=== PATIENT | female | born 1960 | race African-American/Black ===

== ENCOUNTER 2021-03-19 12:33 | Emergency (ER) | payer OTHER ==
[~2021-03-19] VITALS: Ht 154.9 cm; Wt 74.8 kg
[2021-03-19] MEDS ORDERED: IVERMECTIN3 MG PO (16:03)
== END 2021-03-19 16:10 | disposition home or self-care (01) ==
LOC: ER 12:33
DX: B34.9 Viral infection, unspecified (principal); Z03.818 Encounter for observation for suspected exposure to other biological agents ruled out; R09.81 Nasal congestion

== ENCOUNTER 2021-04-03 09:45 | Emergency (ER) | payer OTHER ==
[~2021-04-03] VITALS: Ht 154.9 cm; Wt 71.7 kg
[~2021-04-03 09:45] MED LIST: IVERMECTIN3 MG PO
[2021-04-03] MEDS ORDERED: SYMBICORT 16010.2 GM IH (16:20)
[2021-04-03] MEDS ORDERED: DICLOFENAC POTA50 MG PO (16:20)
[2021-04-03] MEDS ORDERED: MEDROLPACK PO (16:20)
[2021-04-03] MEDS ORDERED: TESSALON PERLE100 M1 PO (16:20)
== END 2021-04-03 16:39 ==
LOC: ER 09:45
DX: U07.1 COVID-19 (principal); J12.82 Pneumonia due to coronavirus disease 2019; R53.1 Weakness

== ENCOUNTER 2021-08-07 21:26 | Emergency (ER) | payer OTHER ==
[~2021-08-07] VITALS: Ht 157.5 cm; Wt 70.3 kg
[~2021-08-07 21:26] MED LIST changes: +DICLOFENAC POTA50 MG PO; +MEDROLPACK PO; +SYMBICORT 16010.2 GM IH; +TESSALON PERLE100 M1 PO
[2021-08-07] MEDS ORDERED: DOLOGEN CAPLET1 EACH PO (21:53)
[2021-08-07] MEDS ORDERED: ZYRTEC10 MG PO (21:53)
[2021-08-07] MEDS ORDERED: ZITHROMAX500 MG PO (21:53)
[2021-08-07] MEDS ORDERED: TUSNEL LIQUID178 ML PO (21:53)
== END 2021-08-07 21:59 | disposition home or self-care (01) ==
LOC: ER 21:26
DX: B34.9 Viral infection, unspecified (principal)

== ENCOUNTER 2022-07-09 13:36 | Emergency (ER) | payer OTHER ==
[~2022-07-09] VITALS: Ht 154.9 cm; Wt 72.6 kg
[~2022-07-09 13:36] MED LIST changes: +DOLOGEN CAPLET1 EACH PO; +TUSNEL LIQUID178 ML PO; +ZITHROMAX500 MG PO; +ZYRTEC10 MG PO
== END 2022-07-09 16:27 | disposition home or self-care (01) ==
LOC: ER 13:36
DX: H66.92 Otitis media, unspecified, left ear (principal)

== ENCOUNTER 2023-02-01 09:14 | Emergency (ER) | payer OTHER ==
[~2023-02-01] VITALS: Ht 154.9 cm; Wt 70.8 kg
== END 2023-02-01 13:43 | disposition home or self-care (01) ==
LOC: ER 09:14
DX: K52.89 Other specified noninfective gastroenteritis and colitis (principal)